=== PATIENT | male | born 1960 | race Caucasian/White ===

== ENCOUNTER 2020-07-01 06:46 | Outpatient (REF) | payer BC, SELFPAY | END 2020-07-01 06:47 | disposition home or self-care (01) | LOC: HO.LAB 06:46 | PROVIDERS: Visit Provider Internal Medicine | DX: Z20.828 Contact with and (suspected) exposure to other viral communicable diseases (principal) | CPT/HCPCS: C9803; U0003 ==

== ENCOUNTER 2024-08-02 09:47 | Outpatient (AMB) | payer MEDICARE, BC, SELFPAY ==
--- NOTE | 2024-08-02 09:50 | MHC.OFFVIS ---
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 He has background history of atrial septal defect for which he underwent percutaneous closure in 2008. He said at that time he has right-sided chambers were dilated and he was short of breath. He did well after that till 4 years ago when he came for colonoscopy to [facility] and was noticed to be in AFib. He said he was sent to the emergency department and eventually was started on apixaban. He said AFib was paroxysmal and most of the time he has followed up with Cardiology at [facility] Cardiology he is not in atrial fibrillation. He was seeing Dr. Agarwal previously but since he left the practice he has seen another stone polisher machine and for the last 2 years he has not followed up with anyone. He is an active smoker currently. He also has diabetes. He had echocardiography done in [facility] and EF was 40-45%. No regional wall motion abnormalities reported. He is active at home but does not exercise regularly. No bleeding concerns. FORMERLY [facility], [facility] Social History (Updated 08/02/24 @ 10:03 by Radha Cornejo [facility]) Alcohol intake: current Alcohol intake frequency: holidays/special occasions only Patient Tobacco Use Status: Former Tobacco user Tobacco use type: Cigarette Review of Systems Const Denies chills, Denies fatigue, Denies fever(s), Denies frequent falls, Denies weakness, Denies weight gain and Denies weight loss ENT Denies dizziness Card Denies chest pain, Denies leg edema, Denies lightheadedness, Denies palpitations, Denies dyspnea and Denies dyspnea on exertion Resp Denies cough, Denies dyspnea and Denies dyspnea on exertion GI Denies hematochezia Musc Denies abnormal gait, Denies muscle weakness, Denies numbness, Denies radiating pain into limb and Denies tingling Neuro Denies abnormal gait, Denies dizziness, Denies frequent falls, Denies numbness, Denies tingling and Denies weakness Endo Denies fatigue and Denies palpitations Physical Exam Vital Signs: Last Vital Signs Pulse 68 08/02/24 09:51 BP 118/66 08/02/24 09:51 BMI result Body Mass Index 23.5 GENERAL APPEARANCE: in no acute distress, pleasant. NECK: no carotid bruit, no jugular venous distention. SKIN: no suspicious lesions, warm and dry. HEART: no murmurs, regular rate and rhythm. LUNGS: clear to auscultation bilaterally. ABDOMEN: soft, nontender. EXTREMITIES: no edema. PERIPHERAL PULSES: equal. NEUROLOGIC: No gross deficits, AAO X 3 Office Procedures EKG Details: Sinus rhythm 68 beats per minute, leftward axis, QTC 431 milliseconds [id number], Complete Assessment & Plan Assessment & Plan (1) Status post device closure of ASD: Code(s): Z87.74 - Personal history of (corrected) congenital malformations of heart and circulatory system Category: Medical (2) Cardiomyopathy: Code(s): I42.9 - Cardiomyopathy, unspecified Category: Medical (3) PAF (paroxysmal atrial fibrillation): Code(s): I48.0 - Paroxysmal atrial fibrillation Category: Medical Plan Pleasant 63 year gentleman who is here for 1st office visit. He has background history of paroxysmal atrial fibrillation and has been on beta-baljeet and Eliquis he is in sinus rhythm currently. He also has background of atrial septal defect closure. He has mild cardiomyopathy on his echocardiogram. Clinically does not have any symptoms/signs of heart failure. He also denying any chest discomfort but does not exercise regularly. At home he is active but he does not do formal exercise. Given mildly reduced ejection fraction on echocardiography and significant risk factors for coronary artery disease I have referred him for stress echocardiogram. We will also do a Holter monitor to see if he is developing paroxysmal atrial fibrillation because that could be another cause for cardiomyopathy in his case. He will see us back in few months. Thank you for allowing me to participate in the care of your patient. Please feel free to contact me if you have any questions. Orders: Orders CA echo stress exercise w con Today I42.9 - Cardiomyopathy, unspecified ECG 7 day holter monitor Today I48.0 - Paroxysmal atrial fibrillation CA stress test Today I42.9 - Cardiomyopathy, unspecified Coding Level of Care Code New Pt Level 4 (77453) Diagnoses Status post device closure of ASD Z87.74 Cardiomyopathy I42.9 PAF (paroxysmal atrial fibrillation) I48.0 CPT Codes EKG - CPT: 39575-[id number], Complete ([id number])
[2024-08-02 09:51] VITALS: BP 118/66; PULSE 68; BMI 23.5
== END 2024-08-02 11:12 | disposition home or self-care (01) ==
PROVIDERS: PCP Internal Medicine; Visit Provider Internal Medicine Cardiovascular Disease
DX: Z87.74 Personal history of (corrected) congenital malformations of heart and circulatory system (principal); I42.9 Cardiomyopathy, unspecified; I48.0 Paroxysmal atrial fibrillation
CPT/HCPCS: 93010; 99204

== ENCOUNTER → 2024-08-02 09:47 | Outpatient (BNVA) | payer MEDICARE, BC, SELFPAY | PROVIDERS: PCP Internal Medicine; Visit Provider Internal Medicine Cardiovascular Disease | DX: I42.9 Cardiomyopathy, unspecified (principal); I48.0 Paroxysmal atrial fibrillation; Z87.74 Personal history of (corrected) congenital malformations of heart and circulatory system | CPT/HCPCS: 93005; 99202 ==

== ENCOUNTER 2024-08-13 17:44 | Emergency (ER) | payer MEDICARE, BC, SELFPAY ==
--- NOTE | ~2024-08-13 | CT_ITS ---
CLINICAL HISTORY: fall CT head without contrast Comparison: None Findings: No evidence of acute territorial infarct. There is patchy low density in the periventricular and subcortical white matter. Diffuse volume loss is noted. No hydrocephalus. No hemorrhage, mass effect, mass lesion or midline shift. No abnormal extra-axial fluid. No calvarial fracture. Paranasal sinuses and mastoid air cells are clear. Impression: No evidence of acute process. Ischemic microangiopathy and diffuse volume loss. This document has been electronically signed by: Martell Carrasco MD on 08/13/2024 20:48:09
--- NOTE | ~2024-08-13 | CT_ITS ---
CLINICAL HISTORY: fall CT cervical spine without contrast Comparison: None Findings: Vertebral alignment is within normal limits. Mild multilevel degenerative changes within the cervical spine. No acute fractures or dislocations. No acute findings on limited view of the intracranial contents. Soft tissues of the neck are normal. Lung apices are clear. IMPRESSION: No acute findings. This document has been electronically signed by: Martell Carrasco MD on 08/13/2024 20:47:06
[2024-08-13 17:51] VITALS: BP 136/75; PULSE 73; O2SAT 97
--- NOTE | 2024-08-13 17:54 | ED.FALL ---
HPI - Fall General Chief Complaint: Fall Stated Complaint: unwit fall, + headstrike w/ hemorrhaging Time Seen by Provider: 08/13/24 17:53 Source: patient and EMS Mode of arrival: EMS Limitations: no limitations History of Present Illness ED Provider: HPI Narrative: Patient's history of ASD status post percutaneous closure in 2008, history of paroxysmal AFib on Eliquis, cardiomyopathy apparently had about 10 beers today was in the driveway coming inside lost balance and fell his forehead to the ground came with abrasion of the left forehead no loss of consciousness no seizure patient was on the driveway for about an hour when neighbor called EMS denies any dizziness palpitation or syncope episode no chest pain Related Data Home Medications ?Medication ?Instructions ?Recorded ?Confirmed apixaban 5 mg tablet (Eliquis) 5 mg PO BID 08/02/24 08/02/24 insulin detemir U-100 100 unit/mL unit subcut 08/02/24 08/02/24 (3 mL) subcutaneous pen latanoprost 0.005 % eye drops 1 drp ophthalmic-Right BEDTIME 08/02/24 08/02/24 lisinopril 5 mg tablet mg PO DAILY 08/02/24 08/02/24 metoprolol tartrate 25 mg tablet 25 mg PO BID 08/02/24 08/02/24 Allergies Allergy/AdvReac Type Severity Reaction Status Date / Time No Known Allergies Allergy Unverified 08/13/24 18:07 [No Known Allergies*] Review of Systems Review of Systems: Yes all other systems are reviewed and are negative [facility] Social History Social History Alcohol intake: current Alcohol intake frequency: holidays/special occasions only Patient Tobacco Use Status: Former Tobacco user Tobacco use type: Cigarette Smoked in Last 30 Days: Yes Use of substances other than those prescribed or required for medical reasons: No Advance Directives: No Advance Directives Information Provided: No Physical Exam Vital Signs: Vital Signs: Last Vital Signs Temp 96.5 F L 08/13/24 23:44 Pulse 104 H 08/13/24 23:44 Resp 18 08/13/24 23:44 BP 124/58 L 08/13/24 23:44 Pulse Ox 94 08/13/24 23:44 O2 Del Method Room Air 08/13/24 23:44 BMI result Body Mass Index 25.1 Appearance: Alert. Oriented X3. No acute distress. Eyes: PERRLA, No Nystagmus ENT: Pharynx normal. Oral Mucosa moist superficial abrasion forehead Neck: Normal inspection. Neck supple. No midline tenderness CVS: Normal heart rate and rhythm. Pulses normal. Respiratory: No respiratory distress. Equal air entry bilateral, no wheezing/rales/rhonchi Abdomen: Soft and nontender. Bowel sounds are present, no mass palpable, no CVA tenderness Skin: Skin warm and dry. Normal skin color. Normal skin turgor. Extremities: No lower extremity edema. No calf tenderness Neuro: Oriented X 3. No motor deficit. No sensory deficit.No cerebellar signs , cranial nerves II-XII intact Medications Administered Discontinued Medications Generic Name Dose Route Start Last Admin Trade Name Freq PRN Reason Stop Dose Admin Sodium Chloride 1,000 mls @ 999 mls/hr 08/13/24 19:59 08/13/24 21:21 Ns IV 08/13/24 20:59 Infused .Q1H1M ONE Infusion Sodium Chloride 1,000 mls @ 999 mls/hr 08/13/24 21:53 08/13/24 23:27 Ns IV 08/13/24 22:53 Infused .Q1H1M ONE Infusion Insulin Glargine 30 unit 08/13/24 21:53 08/13/24 22:11 Insulin Glargine,Hum.Rec.Anlog 100 Unit/Ml 10 Ml Vial SUBCUT 08/13/24 21:54 30 unit ONCE ONE Administration Insulin Human Lispro 14 unit 08/13/24 19:59 08/13/24 20:14 Insulin Lispro 100 Unit/Ml 3 Ml Vial SUBCUT 08/13/24 20:00 14 unit ONCE ONE Administration Insulin Human Lispro 12 unit 08/13/24 21:53 08/13/24 22:12 Insulin Lispro 100 Unit/Ml 3 Ml Vial SUBCUT 08/13/24 21:54 12 unit ONCE ONE Administration Medical Decision Making Medical Decision Making [facility] Narrative: Patient alcoholic with history of diabetes with hyperglycemia came after mechanical fall CT scan of the head and C-spine negative blood sugar was elevated which was corrected using insulin and IV fluids patient has missed his insulin last night which was given in the ER patient ambulatory in his steady gait during stay in the ER Differential Diagnosis Differential Diagnoses: The differential diagnosis associated with the presentation includes Intracranial bleed/subarachnoid bleed/hyperglycemia/AFib Lab Data MDM Lab Attestation statement: I reviewed the patient's lab results. 08/13/24 19:29 08/13/24 19:29 Labs: Lab Results 08/13/24 08/13/24 08/13/24 Range/Units 19:29 21:05 23:05 WBC 8.6 (4.8-10.8) X10*3/uL RBC 5.10 (4.60-5.80) X10*6/uL Hgb 16.3 (14.0-18.0) g/dl Hct 46.8 (42.0-52.0) % MCV 91.8 (80.0-98.0) fL MCH 32.0 (27.0-33.0) pg MCHC 34.8 (31.0-36.0) g/dl RDW 13.2 (11.0-16.0) % Plt Count 278 (160-400) X10*3/uL MPV 9.1 L (9.4-12.4) fL Immature Gran % (Auto) 0.5 H (0.0-0.4) % Neut % (Auto) 75.7 H (45-73) % Lymph % (Auto) 17.3 L (20-40) % [place] % (Auto) 5.1 (2-11) % Eos % (Auto) 0.6 (0-4) % Baso % (Auto) 0.8 (0-2) % Lymph # (Auto) 1.5 (1.2-4.9) X10*3/uL [place] # (Auto) 0.4 (0.1-1.2) X10*3/uL Eos # (Auto) 0.1 (0.0-0.4) X10*3/uL Baso # (Auto) 0.1 (0.0-0.2) X10*3/uL Abs Immat Gran (auto) 0.04 H (0.00-0.03) X10*3/uL Absolute Neuts (auto) 6.5 (2.0-8.3) x10*3/uL Absolute Nucleated RBC 0.000 (0.0-0.012) X10*3/uL Nucleated RBC % (auto) 0.0 (0.0-0.2) /100WBC Sodium 124 L (135-145) mmol/L Potassium 4.9 (3.3-5.1) mmol/L Chloride 91 L (96-108) mmol/L Carbon Dioxide 15 L (22-29) mmol/L Anion Gap 23 H (12-20) BUN 11 (9-16) mg/dL Creatinine 0.97 (0.5-1.4) mg/dL Estim Creat Clear Calc 80.8 Estimated GFR > 60 POC Glucose 401 H* 225 H (60-115) mg/dL Random Glucose 515 H* (60-115) mg/dL Calcium 8.1 L (8.4-10.2) mg/dL Magnesium 2.4 (1.6-2.6) mg/dL Total Bilirubin 0.6 (0.0-1.0) mg/dL AST 37 (5-37) U/L ALT 33 (0-40) U/L Alkaline Phosphatase 106 (39-117) U/L Total Protein 7.7 (6.5-8.0) g/dL Albumin 4.3 (3.5-5.0) g/dL Ethyl Alcohol 332 H* mg/dL Independent Interpretation I performed an independent interpretation of an: EKG Interpretation: Normal sinus rhythm heart rate 97 beats per minute normal interval left axis no acute ST-T changes no acute ischemia Radiology Impression Discussion of test interpretation with radiology: I have reviewed the radiologist's reading. Radiologist Impression: Head CT and cervical CT negative for acute Discharge Plan Discharge Clinical Impression: Fall, Alcohol abuse, Diabetes mellitus with hyperglycemia Patient Disposition: Home, Self-Care Instructions: Abuse of Alcohol (ED), Fall Prevention (ED), Diabetic Hyperglycemia (ED) Additional Instructions: Local care as advised Do not drink alcohol Take your insulin on time Prescriptions: No Action Eliquis 5 mg tablet 5 mg PO BID lisinopril 5 mg tablet PO DAILY Levemir FlexPen 100 unit/mL (3 mL) insulin pen subcut metoprolol tartrate 25 mg tablet 25 mg PO BID latanoprost 0.005 % drops 1 drp ophthalmic-Right BEDTIME Interventions: ED Discharge Assessment Last Done: 08/13/24 23:44 Discharge Date/Time: 08/13/24 23:45 Print Language: Maori
[2024-08-13 18:06] VITALS: BP 108/80; PULSE 88; RESP 18; TEMP 36.1; O2SAT 97; BMI 25.1
--- NOTE | 2024-08-13 18:09 | ECG_ITS ---
Test Reason : fall, etoh Blood Pressure : */* mmHG Vent. Rate : 97 BPM Atrial Rate : 97 BPM P-R Int : 244 ms QRS Dur : 102 ms QT Int : 382 ms P-R-T Axes : 65 -73 60 degrees QTcB Int : 485 ms Poor data quality Sinus rhythm with 1st degree A-V block Left axis deviation Cannot rule out Inferior infarct , age undetermined Abnormal ECG No previous ECGs available Repeat EKG Referred By: Nate Staley Electronically Signed By: SANGEETHA CLIFTON MD
--- NOTE | 2024-08-13 18:31 | MHC.EDTECH ---
This pct went into patients room to conduct an EKG but the patient is very intoxicated and refused his EKG stating he had one two weeks ago and doesn't need another one. RN and AWARE
--- NOTE | 2024-08-13 18:39 | PC.NURSE ---
Patient ripped off his collar, refusing labs and EKG. Refusing exchange administrator into hospital clothes. Provider alerted
--- NOTE | 2024-08-13 19:02 | PC.NURSE ---
Pt yelling and getting out of bed. Pt deescalated and sat back into bed, agreed to go to CT.
[2024-08-13 19:35] LABS: MANUAL DIFF FLAG NO
--- NOTE | 2024-08-13 19:35 | PC.NURSE ---
assumed care of patient. patient took c collar off and is continues to get out of stretcher, patient redirected by this RN to stay in stretcher while waiting for CT results.
[2024-08-13 19:37] LABS: Basophils Absolute Auto 0.1 X10*3/uL (0.0-0.2); Basophils Percent Auto 0.8 % (0-2); Eosinophils Absolute Auto 0.1 X10*3/uL (0.0-0.4); Eosinophils Percent Auto 0.6 % (0-4); Hematocrit 46.8 % (42.0-52.0); Hemoglobin 16.3 g/dl (14.0-18.0); Imm Gran Abs Auto 0.04 X10*3/uL (0.00-0.03); Imm Gran Pct Auto 0.5 % (0.0-0.4); Lymphocytes Absolute Auto 1.5 X10*3/uL (1.2-4.9); Lymphocytes Percent Auto 17.3 % (20-40); Mean Corpuscular HGB Conc 34.8 g/dl (31.0-36.0); Mean Corpuscular Volume 91.8 fL (80.0-98.0); Mean Platelet Volume 9.1 fL (9.4-12.4); Monocytes Absolute Auto 0.4 X10*3/uL (0.1-1.2); Monocytes Percent Auto 5.1 % (2-11); Neutrophils Absolute Auto 6.5 x10*3/uL (2.0-8.3); Neutrophils Percent Auto 75.7 % (45-73); Platelet Count 278 X10*3/uL (160-400); Red Cell Distribution Width 13.2 % (11.0-16.0); White Blood Count 8.6 X10*3/uL (4.8-10.8)
[2024-08-13 19:48] LABS: Ethanol 332 mg/dL
[2024-08-13 19:50] VITALS: BP 105/45; PULSE 98; RESP 20; O2SAT 95
[2024-08-13 19:55] LABS: Alanine Aminotransferase 33 U/L (0-40); Albumin Level 4.3 g/dL (3.5-5.0); Alkaline Phosphatase 106 U/L (39-117); Anion Gap 23 (12-20); Aspartate Amino Transferase 37 U/L (5-37); Bilirubin Total 0.6 mg/dL (0.0-1.0); Blood Urea Nitrogen 11 mg/dL (9-16); Calcium 8.1 mg/dL (8.4-10.2); Carbon Dioxide 15 mmol/L (22-29); Chloride 91 mmol/L (96-108); Creatinine Clr Calc Pharmacy 80.8; Estimated Glomerular Filt Rate > 60; Glucose Random 515 mg/dL (60-115); Magnesium 2.4 mg/dL (1.6-2.6); Potassium 4.9 mmol/L (3.3-5.1); Sodium 124 mmol/L (135-145); Total Protein 7.7 g/dL (6.5-8.0)
[2024-08-13] MEDS: 0.9 % Sodium Chloride 1,000 ML 999 ML IV ×2 (20:14→22:09)
[2024-08-13] MEDS: Insulin Lispro 100 UNIT/ML 3 ML VIAL 14 UNIT SUBCUT (20:14)
[2024-08-13 21:09] LABS: Glucose, Whole Blood 401 mg/dL (60-115)
[2024-08-13] MEDS: Insulin Glargine,Hum.rec.anlog 100 UNIT/ML 10 ML VIAL 30 UNIT SUBCUT (22:11)
[2024-08-13] MEDS: Insulin Lispro 100 UNIT/ML 3 ML VIAL 12 UNIT SUBCUT (22:12)
[2024-08-13 23:14] LABS: Glucose, Whole Blood 225 mg/dL (60-115)
[2024-08-13 23:42] VITALS: BP 124/58; PULSE 104; RESP 18; TEMP 35.8; O2SAT 94
--- NOTE | 2024-08-13 23:43 | PC.NURSE ---
per MD patient okay to discharge with uber or taxi at this time, patient up to nursing station and walking in [place] no apparent distress noted
[2024-08-13 23:44] VITALS: BP 124/58; PULSE 104; RESP 18; TEMP 35.8; O2SAT 94
== END 2024-08-13 23:45 | disposition home or self-care (01) ==
PROVIDERS: Emergency Provider Internal Medicine; PCP Internal Medicine
DX: S09.90XA Unspecified injury of head, initial encounter (principal); S00.81XA Abrasion of other part of head, initial encounter; R51.9 Headache, unspecified; R94.31 Abnormal electrocardiogram [ECG] [EKG]; E11.9 Type 2 diabetes mellitus without complications; I44.0 Atrioventricular block, first degree; M54.2 Cervicalgia; X58.XXXA Exposure to other specified factors, initial encounter; Y93.9 Activity, unspecified; Y92.89 Other specified places as the place of occurrence of the external cause; Y99.9 Unspecified external cause status; Z79.899 Other long term (current) drug therapy; Z87.891 Personal history of nicotine dependence; Z79.4 Long term (current) use of insulin; Z51.81 Encounter for therapeutic drug level monitoring
CPT/HCPCS: 36415; 70450; 72125; 80053; 80307; 82947; 83735; 85025; 93005; 96360; 96361; 99284; 99285

== ENCOUNTER → 2024-08-13 17:54 | Outpatient (BNV) | payer MEDICARE, BC, SELFPAY | PROVIDERS: Emergency Provider Internal Medicine; PCP Internal Medicine; Visit Provider Radiology Vascular & Interventional Radiology | DX: S09.90XA Unspecified injury of head, initial encounter (principal) | CPT/HCPCS: 70450; 72125 ==

== ENCOUNTER → 2024-08-13 18:09 | Outpatient (BNV) | payer MEDICARE, BC, SELFPAY | PROVIDERS: Emergency Provider Internal Medicine; PCP Internal Medicine; Visit Provider Internal Medicine Cardiovascular Disease | DX: R94.31 Abnormal electrocardiogram [ECG] [EKG] (principal) | CPT/HCPCS: 93010 ==

== ENCOUNTER → 2024-08-23 10:43 | Outpatient (REF) | payer MEDICARE, BC, SELFPAY ==
--- NOTE | 2024-08-23 10:49 | CA_ITS ---
Acquisition Time: 2024-08-23 11:08:22 Total Exercise Time: 00:07:51 Test Indications: CARDIOMYOPATHY AFIB Medications: ELIQUIS Insulin LISINOPRIL METOPROLOL Protocol: SHIRLEY Max HR: 130 BPM 83% of Pred: 155 BPM Max BP: 148/80 mmHG Max Work Load: 9.8 METS Exercise Stress Test with exercise 7 mins 51 secs of Shirley Protocol, achieving 83% MPHR, with reports of moderate SOB, no chest discomfort, with frequent isolated PACs and PVCs, ventriculat couplets and one triplet, with normotensive response to exercise. Without EKG changes meeting criteria for ischemia. In recovery, breathing returned to baseline. Echo images obtained by tech at rest and post peak exercise. Definity contrast utilized. Test reviewed with Dr. Ferrara. Referred By: Khanh Deleon Electronically Signed By: Clarence Carrion
--- OUTSIDE RECORDS SUMMARY | 2024-08-23 11:24 | XMS_ITS | Clinical Summary ---
Author Organization [facility] Address [address] [place] [address] Phone Care Team Providers Care House Visitor Name Role Phone Yas Roque MD Primary Care Provider [phone] Encounters Date Type Department Care Team Description 07/10/2024 2:16 PM EST - 07/10/2024 11:59 PM EST Hospital Encounter [facility] CT Scan [address] [place] [address] Encounter for screening for malignant neoplasm of respiratory organs; Nicotine dependence, cigarettes, uncomplicated Discharge Disposition: Home or Self Care from Last 3 Months Surgical History Surgery Date Site/Laterality Comments OTHER SURGICAL HISTORY PROCEDURE: IA INDOCYANINE-GREEN ANGRPH W/MULTIFRAME I&R UNI/BI Medical History Medical History Date Comments Family history of diabetes mellitus (DM) DX:Family history of diabetes mellitus (DM) CAD (coronary artery disease) DX :CAD (coronary artery disease) COPD (chronic obstructive pu lmonary disease) ([facility]) DX:COPD (chronic obstructive pulmonary disease) ([facility]) Diabetes ([facility]) DX:Diabetes ( [facility]); COMMENT: IDDM 12 yrs Tobacco use disorder DX:Tobacco use disorder; COMMENT: 1/2 pack a day Hyperlipidemia DX:Hyperlipidemi a Open-angle glaucoma DX:Open-angl e glaucoma Paroxysmal A-fib ([facility]) DX:Pa roxysmal A-fib ([facility]) Ventricular septal defect DX:David tricular septal defect Social History Tobacco Use Types Packs/Day Years Used Date Smoking Tobacco: Every Day Cigarettes 1 48.9 Started: 09/24/1975 Smokeless Tobacco: Never Alcohol Use Standard Drinks/Week Comments Not Currently 0 (1 standard drink = 0.6 oz pur e alcohol) Sex and Gender Information Value Date Recorded Sex Assigned at Not on file Gender Identity Not on file Sexual Orientation Not on file Obstetrics History Plan of Treatment Health Maintenance Due Date Last Done Comments DTaP,Tdap,and Td Vaccines (1 - Tdap) 1977 Hepatitis A Vaccines (1 of 2 - Risk 2-dose series) 1977 Pneumococcal Vaccine: 65+ Years (2 of 2 - PCV) 01/21/2017 01/22/2016 Pneumococcal Vaccine: Pediatrics (0 to 5 Years) and At-Risk Patients (6 to 64 Years) (2 of 2 - PCV) 01/21/2017 01/22/2016 Zoster Vaccines (2 of 2) 08/29/2018 07/04/2018 RSV Immunization Patients 60 + Years Old (1 - Risk 60-74 years 1-dose series) 2018 Abdominal Aortic Aneurysm (AAA) Screen 06/26/2022 Cholesterol Screening (Lipid Panel) 06/26/2022 Colorectal Cancer Screening: Colonoscopy 06/26/2022 Depression Screening 06/26/2022 Hepatitis C Screening 06/26/2022 Medicare Annual Wellness Visit 06/26/2022 Social Influencers of Health Screening 06/26/2022 Hypertension/CHF/CAD Annual BMP Blood Test 07/06/2022 Falls Risk Assessment 09/24/2023 COVID-19 Vaccine (2023-2 5 season) 2024 07/01/2021, 11/02/2020, 10/12/2020 Influenza Vaccine (#1) 2024 HIB Vaccines Aged Out No longer eligi ble based on patient's age to complete this topic HPV Vaccines Aged Out No longer eligi ble based on patient's age to complete this topic Hepatitis B Vaccines Aged Out No long er eligible based on patient's age to complete this topic IPV Vaccines Aged Out No longer eligi ble based on patient's age to complete this topic MMR Vaccines Aged Out No longer eligi ble based on patient's age to complete this topic Meningococcal ACWY Vaccine Aged Out N o longer eligible based on patient's age to complete this topic RSV Immunization Patients Under 20 months Aged Out No longer eligible b ased on patient's age to complete this topic Varicella Vaccines Aged Out No longer eligible based on patient's age to complete this topic Procedures Procedure Name Priority Date/Time Associated Diagnosis Comments CT LUNG SCREENING Routine 07/10/2024 2:3 2 PM EST Encounter for screening for malignant neoplasm of respiratory organs Nicotine dependence, cigarettes, uncomplicated from Last 3 Months Results * CT Lung Screening (07/10/2024 2:32 PM EST) Anatomical Region Laterality Modality Chest Computed Tomogra phy 07/12/2024 8:43 AM EST Impressions 07/12/2024 8:49 AM EST Stable exam. ?? Lung-RADS 2. ??Follow up examination is advised in one year. -------- FINAL REPORT -------- Dictated By: Alejandro Corea Dictated Date: 07/12/2024 08:43 ET Assigned Physician: Alejandro Corea Reviewed and Electronically Signed By: Alejandro Corea Signed Date: 07/12/2024 08:49 ET Workstation ID: [id number] Transcribed By: Self Edit Transcribed Date: 07/12/2024 08:43 ET Narrative 07/12/2024 8:49 AM EST PROCEDURE: CT chest lung cancer screening low dose examination. INDICATION: CT lung screening. TECHNIQUE: Chest CT without intravenous contrast was performed. ??Low-dose examination was performed. ??Reformatted images were evaluated. DOSE: CTDIvol: 4.8mGy. ??Total exam DLP: 193.9mGy-cm COMPARISON: CT chest June 2023 FINDINGS: NODULES: Several very small nodules at the lung apices appear stable. LUNGS: Minimal emphysematous changes. OTHER: Limited views of the upper abdomen appear normal. ??Atrial septal defect closure device is again noted. ??Minimal coronary atherosclerotic disease. ??Minimal plaque in the aorta without aneurysm. ??Mild degenerative changes of the thoracic spine. Procedure Note Alejandro Corea MD - 07/12/2024 PROCEDURE: CT chest lung cancer screening low dose examination. INDICATION: CT lung screening. TECHNIQUE: Chest CT without intravenous contrast was performed. Low- doseexamination was performed. Reformatted images were evaluated. DOSE: CTDIvol: 4.8mGy. Total exam DLP: 193.9mGy-cm COMPARISON: CT chest June 2023 FINDINGS: NODULES: Several very small nodules at the lung apices appear stable. LUNGS: Minimal emphysematous changes. OTHER: Limited views of the upper abdomen appear normal. Atrial septaldefect closure device is again noted. Minimal coronary atheroscleroticdisease. Minimal plaque in the aorta without aneurysm. Mild degenerativechanges of the thoracic spine. IMPRESSION: Stable exam. Lung-RADS 2. Follow up examination is advised in one year. -------- FINAL REPORT -------- Dictated By: Alejandro Corea Dictated Date: 07/12/2024 08:43 ET Assigned Physician: Alejandro Corea Reviewed and Electronically Signed By: Alejandro Corea Signed Date: 07/12/2024 08:49 ET Workstation ID: [id number] Transcribed By: Self Edit Transcribed Date: 07/12/2024 08:43 ET Kia Colmenares MD IMG CT PROCEDURES from Last 3 Months Care Teams House Visitor Relationship Specialty Start Date End Date Yas Roque MD [address] [place] [address] PCP - General 12/15/05
== END ==
LOC: HO.CARD 10:43
PROVIDERS: PCP Internal Medicine; Visit Provider Internal Medicine Cardiovascular Disease
DX: I48.0 Paroxysmal atrial fibrillation (principal); I42.9 Cardiomyopathy, unspecified
CPT/HCPCS: 93242; 93350; Q9957

== ENCOUNTER → 2024-08-23 10:49 | Outpatient (BNV) | payer MEDICARE, BC, SELFPAY | PROVIDERS: PCP Internal Medicine | DX: I49.3 Ventricular premature depolarization (principal); I49.1 Atrial premature depolarization | CPT/HCPCS: 93244 ==

== ENCOUNTER 2024-09-18 10:31 | Outpatient (REF) | payer MEDICARE, BC, SELFPAY ==
[2024-09-18 11:29] LABS: Hematocrit 46.4 % (42.0-52.0); Mean Corpuscular HGB Conc 34.5 g/dl (31.0-36.0); Mean Corpuscular Hemoglobin 31.9 pg (27.0-33.0); Mean Corpuscular Volume 92.4 fL (80.0-98.0); Mean Platelet Volume 9.5 fL (9.4-12.4); Platelet Count 293 X10*3/uL (160-400); Red Blood Count 5.02 X10*6/uL (4.60-5.80); Red Cell Distribution Width 13.5 % (11.0-16.0)
[2024-09-18 11:36] LABS: Prothrombin Time 11.5 SEC (10.9-12.4)
[2024-09-18 11:55] LABS: Anion Gap 12 (12-20); Blood Urea Nitrogen 7 mg/dL (9-16); Calcium 9.5 mg/dL (8.4-10.2); Carbon Dioxide 27 mmol/L (22-29); Chloride 106 mmol/L (96-108); Estimated Glomerular Filt Rate > 60; Glucose Random 83 mg/dL (60-115); Potassium 5.1 mmol/L (3.3-5.1); Sodium 140 mmol/L (135-145)
--- OUTSIDE RECORDS SUMMARY | 2024-09-18 12:57 | XMS_ITS | Clinical Summary ---
Author Organization [facility] Address [address] [place] [address] Phone Care Team Providers Care Dermatology Teacher Name Role Phone Yas Roque MD Primary Care Provider [phone] Encounters Date Type Department Care Team Description 07/10/2024 2:16 PM EST - 07/10/2024 11:59 PM EST Hospital Encounter [facility] CT Scan [address] [place] [address] Encounter for screening for malignant neoplasm of respiratory organs; Nicotine dependence, cigarettes, uncomplicated Discharge Disposition: Home or Self Care from Last 3 Months Surgical History Surgery Date Site/Laterality Comments OTHER SURGICAL HISTORY PROCEDURE: [place] INDOCYANINE-GREEN ANGRPH W/MULTIFRAME I&R UNI/BI Medical History Medical History Date Comments Family history of diabetes mellitus (DM) DX:Family history of diabetes mellitus (DM) CAD (coronary artery disease) DX :CAD (coronary artery disease) COPD (chronic obstructive pu lmonary disease) ([facility]) DX:COPD (chronic obstructive pulmonary disease) ([facility]) Diabetes ([facility]) DX:Diabetes ( [facility]); COMMENT: IDDM 12 yrs Tobacco use disorder DX:Tobacco use disorder; COMMENT: 1/2 pack a day Hyperlipidemia DX:Hyperlipidemi a Open-angle glaucoma DX:Open-angl e glaucoma Paroxysmal A-fib ([facility]) DX:Pa roxysmal A-fib ([facility]) Ventricular septal defect DX:David tricular septal defect Social History Tobacco Use Types Packs/Day Years Used Date Smoking Tobacco: Every Day Cigarettes 1 49 Started: 09/24/1975 Smokeless Tobacco: Never Alcohol Use Standard Drinks/Week Comments Not Currently 0 (1 standard drink = 0.6 oz pur e alcohol) Sex and Gender Information Value Date Recorded Sex Assigned at Not on file Legal Sex Male 6:41 AM EST Gender Identity Not on file Sexual Orientation Not on file Obstetrics History Plan of Treatment Health Maintenance Due Date Last Done Comments DTaP,Tdap,and Td Vaccines (1 - Tdap) 1977 Hepatitis A Vaccines (1 of 2 - Risk 2-dose series) 1977 Pneumococcal Vaccine: 50+ Years (2 of 2 - PCV) 01/21/2017 [...] 07/06/2022 Falls Risk Assessment 09/24/2023 COVID-19 Vaccine (4 - 2023-2 5 season) 2024 07/01/2021, 11/02/2020, 10/12/2020 Influenza [...] patient's age to complete this topic Meningococcal B Vacine Aged Out No lo nger eligible based on patient's age to complete [...] Signed Date: 07/12/2024 08:49 ET Workstation ID: [id number] Transcribed By: Self Edit Transcribed Date: 07/12/2024 [...] Signed Date: 07/12/2024 08:49 ET Workstation ID: [id number] Transcribed By: Self Edit Transcribed Date: 07/12/2024 08:43 ET Kia Colmenares MD IM CT PROCEDURES Final Result from Last 3 Months Insurance MEDICARE [facility] Care Teams Dermatology Teacher Relationship Specialty Start Date End Date Yas Roque MD [address] [place] [address] PCP - General 12/15/05
== END 2024-09-18 10:32 | disposition home or self-care (01) ==
LOC: HO.LAB 10:31
PROVIDERS: PCP Internal Medicine; Visit Provider Internal Medicine Cardiovascular Disease
DX: R94.39 Abnormal result of other cardiovascular function study (principal)
CPT/HCPCS: 36415; 80048; 85027; 85610

== ENCOUNTER → 2024-10-01 23:59 | Outpatient (BNV) | payer MEDICARE, BC, SELFPAY | PROVIDERS: PCP Internal Medicine; Visit Provider Internal Medicine Cardiovascular Disease | DX: I25.10 Atherosclerotic heart disease of native coronary artery without angina pectoris (principal); I50.20 Unspecified systolic (congestive) heart failure; R93.1 Abnormal findings on diagnostic imaging of heart and coronary circulation | CPT/HCPCS: 92928; 92978; 93458; 99152 ==

== ENCOUNTER 2024-10-15 13:11 | Outpatient (AMB) | payer MEDICARE, BC, SELFPAY ==
[2024-10-15 13:29] VITALS: BP 110/64; PULSE 61; BMI 23.2
--- NOTE | 2024-10-15 13:29 | A.OFFVIS_ITS ---
Vital Signs 10/15/24 13:29 Height 5 ft 11 in Weight 166 lb 3.657 oz BMI 23.2 BP 110/64 Blood Pressure Location Lt brachial Position Sitting Pulse 61 Pulse Source Pulse Oximeter Intake Visit Reasons: Follow up post cardiac cath Intake Note: F/U Cardiac Cath. Pt has no complaints Dental Sales Representative Required: No Accompanied by: Spouse Allergies No Known Allergies [No Known Allergies*] Allergy (Unverified 08/13/24 18:07) Medication List - Last Reconciled 10/15/24 by Clarence Carrion NP apixaban (Eliquis) 5 mg PO BID clopidogrel (Plavix) 75 mg PO DAILY insulin detemir U-100 units subcut latanoprost 0.005% 1 drp ophthalmic-Right BEDTIME lisinopril mg PO DAILY metoprolol tartrate 25 mg PO BID HPI Comments Details: This is a 64-year-old male patient presenting for a follow-up visit. Patient with a history of atrial septal defect status post closure in 2008, hypertension, diabetes, smoking, and AFib, which was discovered during a colonoscopy. He was subsequently started on Eliquis for anticoagulation. The patient has recently established care with our cardiology office as he had not been following up with [facility]. Regarding his mild cardiomyopathy that was found on an echocardiogram, the patient underwent a stress echocardiogram which was abnormal leading to a subsequent cardiac catheterization performed by Dr. Deleon at [facility]. Today, the patient reports feeling well overall and denies any symptoms including exertional chest pain, shortness of breath, palpitations, dizziness, fatigue, orthopnea, PND, leg edema, presyncope, or syncope. Patient states he has been compliant with his medications. Patient is accompanied by his today. [facility] Surgical History Hx of cardiac cath Social History Alcohol intake: current Alcohol intake frequency: holidays/special occasions only Patient Tobacco Use Status: Former Tobacco user Tobacco use type: Cigarette Review of Systems Const Denies chills, Denies fatigue, Denies fever(s), Denies weight gain and Denies weight loss ENT Denies dizziness Card Denies chest pain, Denies leg edema, Denies lightheadedness, Denies palpitations, Denies dyspnea on exertion, Denies orthopnea and Denies other Resp Denies cough and Denies dyspnea on exertion GI Denies hematochezia and Denies change in stool character Musc Denies abnormal gait, Denies muscle weakness, Denies numbness, Denies radiating pain into limb and Denies tingling Neuro Denies abnormal gait, Denies dizziness, Denies numbness and Denies tingling Endo Denies fatigue and Denies palpitations Physical Exam Vital Signs: Last Vital Signs Pulse 61 10/15/24 13:29 BP 110/64 10/15/24 13:29 BMI result Body Mass Index 23.2 Const General: cooperative, healthy appearing, comfortable and no acute distress Orientation/consciousness: patient oriented x3 HEENT Head: Yes normal to inspection Neck Neck: Yes normal visual inspection, Yes trachea midline and Yes supple Chest Chest palpation & inspection: normal inspection of the chest Resp Effort & Inspection: normal respiratory effort Auscultation: clear to auscultation bilaterally, no crackles, no rales, no rhonchi and no wheezes Cardio Jugular venous distension: no JVD Palpation: normal PMI Rate: regular rate Rhythm: regular rhythm Heart sounds: S1 normal heart sound present, S2 normal heart sound present, no click, no gallops, no murmurs and no rubs Peripheral pulses: Peripheral pulses 2+ throughout GI Inspection: Yes normal to inspection Palpation (GI): Soft to palpation Auscultation: normal bowel sounds Skin General skin exam: no rashes or lesions noted Neuro General: patient oriented x3 Extrem General: Yes normal to inspection, No no pedal edema and No calf tenderness Psych Appearance: grossly normal Mental Status: mental status grossly normal Speech and movement: Normal speech and movement present Assessment & Plan Assessment & Plan (1) S/P cardiac cath: Code(s): Z98.890 - Other specified postprocedural states Category: Surgical Plan: 04/09/2024- echo study from [facility] showed a reduced ejection fraction between 40-45%, mild global hypokinesis of the left ventricle. 08/23/2024-Holter study showed normal sinus rhythm with frequent PVCs with different morphologies, NSVT lasting 14 beats max, and occasional PACs. 08/23/2024-patient underwent a stress echocardiogram that showed abnormalities in the distal anterior and distal septal wall motion. 10/01/2024-patient underwent cardiac catheterization that showed mild disease in the proximal RCA, severe proximal to mid LAD stenosis at 80% involving diagonal bifurcation. Patient underwent successful PCI to the LAD. Right wrist catheterization site is well healed. Continue Eliquis therapy for AFib. Since patient is on the Eliquis, no need for aspirin therapy. Continue uninterrupted Plavix therapy for at least 12 months. Continue metoprolol, lisinopril, and high-dose statin. No recent LDL. We will get a lipid panel. Ideally, LDL goal less than 70. (2) CAD (coronary artery disease): Code(s): I25.10 - Atherosclerotic heart disease of [place] coronary artery without angina pectoris Category: Medical Plan: As above. Insulin-dependent diabetic. States his blood sugars have been well-controlled. Ideally, A1c goal less than 7%. (3) Cardiomyopathy: Code(s): I42.9 - Cardiomyopathy, unspecified Category: Medical Plan: As above. (4) PAF (paroxysmal atrial fibrillation): Code(s): I48.0 - Paroxysmal atrial fibrillation Category: Medical Plan: As above. (5) Status post device closure of ASD: Code(s): Z87.74 - Personal history of (corrected) congenital malformations of heart and circulatory system Category: Surgical Plan: Echo at [facility] showed the evidence of closure. Patient refused cardiac rehab referral. Advised patient to start a heart healthy diet, regular exercise of at least 20-30 minutes of moderate walking 3 to 4 times a week, smoking cessation, avoidance of alcohol, medication complian ce, and aggressive management of risk factors. Patient will follow up with us in 4 months. In the interim, patient will call us with any concerns or change in symptoms. This note was generated using voice recognition software. While every effort has been made to ensure accuracy and proper horticultural agent, there may be occasional errors that could affect the content or meaning of the described symptoms. Orders: Orders Lipid Panel 1 Month I25.10 - Atherosclerotic heart disease of [place] coronary artery without angina pectoris Medications: New atorvastatin 80 mg PO DAILY 90 tabs 1RF Coding Level of Care Code Est Pt Level 4 (87112) Complex EM visit Add On G2211 Diagnoses S/P cardiac cath Z98.890 CAD (coronary artery disease) I25.10 Cardiomyopathy I42.9 PAF (paroxysmal atrial fibrillation) I48.0 Status post device closure of ASD Z87.74 Time Spent (min) 31 Comment Time spent in reviewing the chart, test results, assessment, counseling and documentation.
== END 2024-10-15 14:19 | disposition home or self-care (01) ==
LOC: HO.HCS 13:12
PROVIDERS: PCP Internal Medicine
DX: Z98.890 Other specified postprocedural states (principal); I25.10 Atherosclerotic heart disease of native coronary artery without angina pectoris; I42.9 Cardiomyopathy, unspecified; I48.0 Paroxysmal atrial fibrillation; Z87.74 Personal history of (corrected) congenital malformations of heart and circulatory system
CPT/HCPCS: 99214; G2211

== ENCOUNTER → 2024-10-15 13:11 | Outpatient (BNVA) | payer MEDICARE, BC, SELFPAY | PROVIDERS: PCP Internal Medicine | DX: I10 Essential (primary) hypertension (principal); I48.91 Unspecified atrial fibrillation; I25.10 Atherosclerotic heart disease of native coronary artery without angina pectoris; I48.0 Paroxysmal atrial fibrillation; I42.9 Cardiomyopathy, unspecified; F17.210 Nicotine dependence, cigarettes, uncomplicated; Z87.74 Personal history of (corrected) congenital malformations of heart and circulatory system; Z79.01 Long term (current) use of anticoagulants; Z98.890 Other specified postprocedural states | CPT/HCPCS: 99212 ==

== ENCOUNTER 2025-01-13 11:17 | Outpatient (AMB) | payer MEDICARE, BC, SELFPAY ==
[2025-01-13 11:22] VITALS: BP 110/70; PULSE 74; BMI 23.2
--- NOTE | 2025-01-13 11:22 | A.OFFVIS_ITS ---
Vital Signs 01/13/25 11:22 Height 5 ft 11 in Weight 166 lb 10.711 oz BMI 23.2 BP 110/70 Blood Pressure Location Lt brachial Position Sitting Pulse 74 Pulse Source Pulse Oximeter Intake Visit Reasons: 3m F/U Intake Note: 3 mth f/up Jute Bag Cutting Machine Operator Required: No Accompanied by: Spouse Allergies No Known Allergies (No Known Allergies*) Allergy (Unverified 08/13/24 18:07) Medication List - Last Reconciled 01/13/25 by Khanh Deleon MD apixaban (Eliquis) 5 mg PO BID atorvastatin 80 mg PO DAILY clopidogrel (Plavix) 75 mg PO DAILY insulin detemir U-100 units subcut latanoprost 0.005% 1 drp ophthalmic-Right BEDTIME lisinopril mg PO DAILY metoprolol tartrate 25 mg PO BID HPI Comments Details: 64-year-old gentleman who is here for follow-up. He has background history of atrial septal defect for which he underwent percutaneous closure in 2008. He said at that time he has right-sided chambers were dilated and he was short of breath. He did well after that till 4 years ago when he came for colonoscopy to [facility] and was noticed to be in AFib. He said he was sent to the emergency department and eventually was started on apixaban. He said AFib was paroxysmal and most of the time he has followed up with Cardiology at [facility] he is not in atrial fibrillation. He was seeing Dr. Agarwal previously but since he left the practice he has seen another recordings librarian and for the last 2 years he has not followed up with anyone . He is an active smoker currently. He also has diabetes. He had echocardiography done in [facility] and EF was 40-45%. No regional wall motion abnormalities reported. He is active at home but does not exercise regularly. No bleeding concerns. 01/13/2025: He is here for follow-up. He underwent cardiac catheterization because his stress echocardiogram was abnormal. This showed severe LAD stenosis which was treated with drug-eluting stent. He has been on Plavix and Eliquis since then. Denying any significant symptoms. He continues to smoke half pack per day. He is saying that he is cutting back and trying to quit. [facility] Surgical History Hx of cardiac cath Social History Alcohol intake: current Alcohol intake frequency: holidays/special occasions only Patient Tobacco Use Status: Former Tobacco user Tobacco use type: Cigarette Review of Systems Const Denies chills, Denies fatigue, Denies fever(s), Denies frequent falls, Denies weakness, Denies weight gain and Denies weight loss ENT Denies dizziness Card Denies chest pain, Denies leg edema, Denies lightheadedness, Denies palpitations, Denies dyspnea and Denies dyspnea on exertion Resp Denies cough, Denies dyspnea and Denies dyspnea on exertion GI Denies hematochezia Musc Denies abnormal gait, Denies muscle weakness, Denies numbness, Denies radiating pain into limb and Denies tingling Neuro Denies abnormal gait, Denies dizziness, Denies frequent falls, Denies numbness, Denies tingling and Denies weakness Endo Denies fatigue and Denies palpitations Physical Exam Vital Signs: Last Vital Signs Pulse 74 01/13/25 11:22 BP 110/70 01/13/25 11:22 BMI result Body Mass Index 23.2 GENERAL APPEARANCE: in no acute distress, pleasant. NECK: no carotid bruit, no jugular venous distention. SKIN: no suspicious lesions, warm and dry. HEART: no murmurs, regular rate and rhythm. LUNGS: clear to auscultation bilaterally. ABDOMEN: soft, nontender. EXTREMITIES: no edema. PERIPHERAL PULSES: equal. NEUROLOGIC: No gross deficits, AAO X 3 Assessment & Plan Assessment & Plan (1) Cardiomyopathy: Code(s): I42.9 - Cardiomyopathy, unspecified Category: Medical (2) CAD (coronary artery disease): Code(s): I25.10 - Atherosclerotic heart disease of [place] coronary artery without angina pectoris Category: Medical (3) S/P coronary angioplasty: Code(s): Z98.61 - Coronary angioplasty status Category: Surgical Plan [age] year gentleman who is here for follow-up. He has background history of ASD closure. He had mild cardiomyopathy by echocardiogram performed in [facility]. Subsequently underwent exercise stress echo which was abnormal. Diagnostic angiography showed severe LAD stenosis which was treated with drug- eluting stent. Doing well currently without any significant symptoms. We discussed about smok ing cessation. He will continue Eliquis and Plavix for now. Blood pressure well controlled. We will repeat limited echo to reassess ejection fraction. Follow-up in few months. Thank you for allowing me to participate in the care of your patient. Please feel free to contact me if you have any questions. Orders: Orders CA Echo Limited Today I42.9 - Cardiomyopathy, unspecified Coding Level of Care Code Est Pt Level 4 (77622) Complex EM visit Add On G2211 Diagnoses Cardiomyopathy I42.9 CAD (coronary artery disease) I25.10 S/P coronary angioplasty Z98.61
--- OUTSIDE RECORDS SUMMARY | 2025-01-13 12:56 | XMS_ITS | Clinical Summary ---
Author Organization [facility] Address [address] [place] [address] Phone Care Team Providers Care Global Engineering Manager Name Role Phone Yas Roque MD Primary Care Provider [phone] Allergies No known active allergies Medications latanoprost (XALATAN) 0.005 % ophthalmic solution 1 drop at bedtime. Active insulin lispro (HumaLOG KwikPen Insulin) 100 unit/mL injection pen Inject under the skin 3 (three) times a day before meals. Active metoprolol tartrate (LOPRESSOR) 25 mg tablet Take 1 tablet (25 mg total) by mouth 2 (two) times a day. Active flash glucose sensor (FREESTYLE ANTONIETTA 10 DAY SENSOR MIS) Active apixaban (Eliquis) 5 mg tablet Take 1 tablet (5 mg total) by mouth 2 (two) times a day. Active lisinopriL (PRINIVIL,ZESTRI L) 5 mg tablet Take 1 tablet (5 mg total) by mouth 1 (one) time each day. Active pen needle, diabetic (BD Ultra-Fine Orig Pen Needle) 29 gauge x 1/2 needle Active insulin aspart, niacinamide, (Fiasp FlexTouch U-100 Insulin) 100 unit/mL (3 mL) injection pen Inject under the skin 3 (three) times a day before meals. Active Encounters Date Type Department Care Team Description 11/06/2024 Telephone Gastroenterology - [address] [phone] Osmin Breaux MD 11/01/2024 Telephone Gastroenterology - [address] [address] Osmin Breaux MD information needed from Last 3 Months Surgical History Surgery Date Site/Laterality Comments OTHER SURGICAL HISTORY PROCEDURE: [place] INDOCYANINE-GREEN ANGRPH W/MULTIFRAME I&R UNI/BI Medical History Medical History Date Comments Family history of diabetes mellitus (DM) DX:Family history of diabetes mellitus (DM) CAD (coronary artery disease) DX :CAD (coronary artery disease) COPD (chronic obstructive pu lmonary disease) ([facility], [facility] V28) DX:COPD (chronic o bstructive pulmonary disease) ([facility]) Diabetes ([facility]24, [facility] V28) DX:Diabetes ([facility]); COMMENT: IDDM 12 yrs Tobacco use disorder DX:Tobacco use disorder; COMMENT: 1/2 pack a day Hyperlipidemia DX:Hyperlipidemi a Open-angle glaucoma DX:Open-angl e glaucoma Paroxysmal A-fib ([facility] V2 4, [facility] V28) DX:Paroxysmal A-fib ([facility]) Ventricular septal defect DX:David tricular septal defect Social History Tobacco Use Types Packs/Day Years Used Date Smoking Tobacco: Every Day Cigarettes 1 49.3 Started: 09/24/1975 Smokeless Tobacco: Never Alcohol Use [...] DTaP,Tdap,and Td Vaccines (1 - Tdap) 1977 Pneumococcal Vaccine: 50+ Years (2 of 2 - PCV) 01/21/2017 01/22/2016 Zoster Vaccines (2 of 2) 08/29/2018 07/04/2018 RSV Immunization Adult Patients (1 - Risk 60-74 years 1-dose series) 2018 Abdominal Aortic Aneurysm (AAA) Screen 06/26/2022 Cholesterol Screening (Lipid Panel) 06/26/2022 Colorectal Cancer Screening: Colonoscopy 06/26/2022 Depression Screening 06/26/2022 Hepatitis C Screening 06/26/2022 Medicare Annual Wellness Visit 06/26/2022 Social Influencers of Health Screening 06/26/2022 Hypertension/CHF/CAD Annual BMP Blood Test 07/06/2022 Falls Risk Assessment 09/24/2023 COVID-19 Vaccine (2023-2 5 season) 2024 07/01/2021, 11/02/2020, 10/12/2020 Influenza Vaccine (Season Ended) 2025 HIB Vaccines Aged Out No longer eligi ble based on patient's age to complete this topic HPV Vaccines Aged Out No longer eligi ble based on patient's age to complete this topic Hepatitis A Vaccines Aged Out No long er eligible [...] age to complete this topic Meningococcal B Vaccine Aged Out No l onger eligible based on patient's age to complete this topic RSV Immunization Patients Under 20 months Aged Out No longer eligible b ased on patient's age to complete this topic Varicella Vaccines Aged Out No longer eligible based on patient's age to complete this topic Insurance MEDICARE [facility] Care Teams Global Engineering Manager Relationship Specialty Start Date End Date Yas Roque MD [address] [place] [address] PCP - General 12/15/05
== END 2025-01-13 11:58 | disposition home or self-care (01) ==
LOC: HO.HCS 11:18
PROVIDERS: PCP Internal Medicine; Visit Provider Internal Medicine Cardiovascular Disease
DX: I42.9 Cardiomyopathy, unspecified (principal); I25.10 Atherosclerotic heart disease of native coronary artery without angina pectoris; Z98.61 Coronary angioplasty status
CPT/HCPCS: 99214; G2211

== ENCOUNTER → 2025-01-13 11:17 | Outpatient (BNVA) | payer MEDICARE, BC, SELFPAY | PROVIDERS: PCP Internal Medicine; Visit Provider Internal Medicine Cardiovascular Disease | DX: I42.9 Cardiomyopathy, unspecified (principal); I25.10 Atherosclerotic heart disease of native coronary artery without angina pectoris; Z98.61 Coronary angioplasty status | CPT/HCPCS: 99212 ==

== ENCOUNTER → 2025-04-23 08:47 | Outpatient (REF) | payer MEDICARE, BC, SELFPAY ==
--- NOTE | 2025-04-23 08:49 | CA_ITS ---
Transthoracic Echocardiogram Patient (Last, First, Middle): Rishi Bower, Gender: M Date of : 1960 Age: 64 Procedure Date: 04/23/2025 Procedure Type: Transthoracic Echocardiogram Location: OP Height: 180.34 cm Weight: 75.3 kg BSA: 1.95 m2 Heart Rate: bpm BP: 110 / 70 mmHg Chronometer Tester: ERMA/ANN Referring MD: Khanh Deleon MD Activities Specialist: Khanh Deleon MD Symptoms: I42.9 - Cardiomyopathy, unspecified Study Quality: Adequate ECG Rhythm: Sinus Conclusions: - The left ventricular systolic function is moderately decreased. The visually estimated ejection fraction is between 35-40%. Findings Left Ventricle Normal left ventricular cavity size. There is mildly increased left ventricular wall thickness. The left ventricular systolic function is moderately decreased. The visually estimated ejection fraction is between 35 40%. There is moderate global hypokinesis. Moderate hypertrophy of the basal septum. LV peak GLS -12.7%. Venous The inferior vena cava is normal in size and collapses greater than 50% with inspiration. Prior Study Comparison No prior study available for comparison. Measurements 2D Linear Measurements IVSd: 1.11 0.6-0.9/0.6-1.0 cm LVIDd: 5.01 3.9-5.3/4.2-5.9 cm LVIDs: 4.00 2.0-3.6 cm LVPWd: 1.04 0.7-1.1 cm LA Diam: 4.00 2.7-3.8/3.0-4.0 cm LV Mass: 250.96 67-162/88-224 g LVOT Diam: 2.00 3.0+(-)1.3 cm 2D Systolic Function EF 4C: 45.70 >55% EF 2C: 44.10 >55% EF BiP: 45.60 >55% LVOT LVOT Pk Martin: 0.65 LVOT Mn Martin: 0.40 LVOT VTI: 0.16 LVOT Pk Grad: 2.00 LVOT Mn Grad: 1.00 LVOT Diam: 2.00 LVOT Area: 3.14 Tricuspid Valve RA Press: 3.00 Updated in Other Vendor System with Status of Final Noam Ferrara MD electronically signed on 04/25/2025 3:05:39 PM with status of Final
--- OUTSIDE RECORDS SUMMARY | 2025-04-23 09:22 | XMS_ITS | Clinical Summary ---
Author Organization [facility] Address [address] [place] [phone] Phone Care Team Providers Care Station Captain Name Role Phone Yas Roque MD Primary Care Provider [phone] Allergies No known active allergies Medications latanoprost [...] glucose sensor (FREESTYLE ANTONIETTA 10 DAY SENSOR MISC) Active apixaban (Eliquis) 5 mg tablet Take [...] (three) times a day before meals. Active Surgical History Surgery Date Site/Laterality Comments OTHER SURGICAL HISTORY PROCEDURE: [place] INDOCYANINE-GREEN ANGRPH W/MULTIFRAME I&R UNI/BI Medical History Medical History Date Comments Family history of diabetes mellitus (DM) DX:Family history of diabetes mellitus (DM) CAD (coronary artery disease) DX :CAD (coronary artery disease) [place]ch[place] obstructive pu [place]monary disease[place] [place] [facility] [place] DX:COPD (chronic o bstructive pulmonary disease) ([facility]) [place] [place] [facility] [place] DX:Diabetes ([facility]); COMMENT: IDDM 12 yrs Tobacco use disorder DX:Tobacco use disorder; COMMENT: 1/2 pack a day Hyperlipidemia DX:Hyperlipidemi a Open-angle glaucoma DX:Open-angl e glaucoma Paroxysmal A-[place] [place] [facility] [place] DX:Paroxysmal A-fib ([facility]) Ventricular septal defect DX:David tricular septal defect Social History Tobacco Use Types Packs/Day Years Used Date Smoking Tobacco: Every Day Cigarettes 1 49.6 Started: 09/24/1975 Smokeless Tobacco: Never Alcohol Use Standard Drinks/Week Comments Not Currently 0 (1 standard drink = 0.6 oz pur e alcohol) Sex and Gender Information Value Date Recorded Sex Assigned at Not on file Legal Sex Male 6:41 AM EST Gender Identity Not on file Sexual Orientation Not on file Obstetrics History Plan of Treatment Health Maintenance Due Date Last Done Comments Colorectal Cancer Screening: Colonoscopy 1958 DTaP,Tdap,and Td Vaccines (1 - Tdap) 1977 Pneumococcal Vaccine: 50+ Years (2 of 2 - PCV) 01/21/2017 01/22/2016 Zoster Vaccines (2 of 2) 08/29/2018 07/04/2018 RSV Immunization Adult Patients (1 - Risk 60-74 years 1-dose series) 2018 Abdominal Aortic Aneurysm (AAA) Screen 06/26/2022 Cholesterol Screening (Lipid Panel) 06/26/2022 Hepatitis C Screening 06/26/2022 Medicare Annual Wellness Visit 06/26/2022 Social Influencers of Health Screening 06/26/2022 Hypertension/CHF/CAD Annual BMP Blood Test 07/06/2022 Falls Risk Assessment 09/24/2023 Depression Screening 07/24/2024 COVID-19 Vaccine (4 - 2024-2 6 season) 2025 07/01/2021, 11/02/2020, 10/12/2020 Influenza Vaccine (#1) 2025 HIB Vaccines Aged Out No longer [...] age to complete this topic Insurance MEDICARE [facility] Care Teams Station Captain Relationship Specialty Start Date End Date Yas Roque MD [address] [place] [address] PCP - General 12/15/05
== END ==
LOC: HO.CARD 08:47
PROVIDERS: Visit Provider Internal Medicine Cardiovascular Disease
DX: I42.9 Cardiomyopathy, unspecified (principal)
CPT/HCPCS: 93308

== ENCOUNTER → 2025-04-23 08:49 | Outpatient (BNV) | payer MEDICARE, BC, SELFPAY | PROVIDERS: Visit Provider Internal Medicine | DX: I42.2 Other hypertrophic cardiomyopathy (principal) | CPT/HCPCS: 93308; 93356 ==

== ENCOUNTER 2025-04-30 14:05 | Outpatient (AMB) | payer MEDICARE, BC, SELFPAY ==
--- NOTE | 2025-04-30 14:21 | A.OFFVIS_ITS ---
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 He has background history of atrial septal defect for which he underwent percutaneous closure in 2008. He said at that time he has right-sided chambers were dilated and he was short of breath. He did well after that till 4 years ago when he came for colonoscopy to [facility] and was noticed to be in AFib. He said he was sent to the emergency department and eventually was started on apixaban. He said AFib was paroxysmal and most of the time he has followed up with Cardiology at [facility] Cardiology he is not in atrial fibrillation. He was seeing Dr. Agarwal previously but since he left the practice he has seen another eco industrial development consultant and for the last 2 years he has not followed up with anyone. He is an active smoker currently. He also has diabetes. He had echocardiography done in [facility] and EF was 40-45%. No regional wall motion abnormalities reported. He is active at home but does not exercise regularly. No bleeding concerns. 01/13/2025: He is here for follow-up. He underwent cardiac catheterization because his stress echocardiogram was abnormal. This showed severe LAD stenosis which was treated with drug-eluting stent. He has been on Plavix and Eliquis since then. Denying any significant symptoms. He continues to smoke half pack per day. He is saying that he is cutting back and trying to quit. 04/30/2025: He is here for follow-up. Recent echocardiography has shown worsening EF of 35-40%. On discussion with him he drinks daily almost 6 beers per day as per the . He is saying he has cut back somewhat on smoking. He also has a fatty liver and was waiting to see GI for that. [facility] Surgical History Hx of cardiac cath Social History Alcohol intake: current Alcohol intake frequency: holidays/special occasions only Patient Tobacco Use Status: Former Tobacco user Tobacco use type: Cigarette Review of Systems Const Denies daytime sleepiness, Denies difficulty sleeping, Denies snoring, Denies stops breathing during sleep and Denies weakness Card Denies chest pain, Denies rapid heart rate, Denies irregular heart rhythm, Denies claudication, Denies leg edema, Denies lightheadedness, Denies palpitations, Denies dyspnea, Denies dyspnea on exertion, Denies orthopnea, Denies paroxysmal nocturnal dyspnea and Denies slow heart rate Resp Denies cough, Denies dyspnea, Denies dyspnea on exertion and Denies snoring GI Reports no additional complaints, Denies hematochezia, Denies change in stool character and Denies dyspepsia Musc Denies abnormal gait, Denies muscle weakness and Denies numbness Neuro Denies abnormal gait, Denies numbness and Denies weakness Endo Denies palpitations Physical Exam Vital Signs: Last Vital Signs Pulse 62 04/30/25 14:22 BP 118/62 04/30/25 14:22 BMI result Body Mass Index 22.7 GENERAL APPEARANCE: in no acute distress, pleasant. NECK: no carotid bruit, no jugular venous distention. SKIN: no suspicious lesions, warm and dry. HEART: no murmurs, regular rate and rhythm. LUNGS: clear to auscultation bilaterally. ABDOMEN: soft, nontender. EXTREMITIES: no edema. PERIPHERAL PULSES: equal. NEUROLOGIC: No gross deficits, AAO X 3 Assessment & Plan Assessment & Plan (1) Cardiomyopathy: Code(s): I42.9 - Cardiomyopathy, unspecified Category: Medical (2) CAD (coronary artery disease): Code(s): I25.10 - Atherosclerotic heart disease of [place] coronary artery without angina pectoris Category: Medical (3) S/P coronary angioplasty: Code(s): Z98.61 - Coronary angioplasty status Category: Surgical Plan [age] year gentleman who is here for follow-up. He has background history of ASD closure. He was noticed to have severe LAD stenosis underwent drug-eluting stent to LAD in the past. He is currently on Eliquis and Plavix. He had paroxysmal atrial fibrillation in the past and is on Eliquis for that. His EKGs have shown sinus rhythm. Reviewing his echocardiography is EF is 35-40%. Was previously 40-45% and I think there is mild worsening of the ejection fraction. In any case we di scussed about potential causes for the cardiomyopathy and given the fact that he drinks up to 6 beers almost daily I have advised him to cut back on drinking because this is the likely cause for his cardiomyopathy. He also has fatty liver which goes along with alcohol use and I have advised him that cutting back on alcohol will likely improve with a fatty liver issue 2. He wants to see a licensed funeral director and we will refer him to GI. He has type 1 diabetes and can not take SGLT2 inhibitors. His last potassium was 5.1. I am reluctant to add spironolactone currently. We will reassess him in few months. He will cut back on alcohol intake. Thank you for allowing me to participate in the care of your patient. Please feel free to contact me if you have any questions. Coding Level of Care Code Est Pt Level 5 (86671) Diagnoses Cardiomyopathy I42.9 CAD (coronary artery disease) I25.10 S/P coronary angioplasty Z98.61
[2025-04-30 14:22] VITALS: BP 118/62; PULSE 62; BMI 22.7
== END 2025-04-30 15:12 | disposition home or self-care (01) ==
LOC: HO.HCS 14:06
PROVIDERS: PCP Internal Medicine; Visit Provider Internal Medicine Cardiovascular Disease
DX: I42.9 Cardiomyopathy, unspecified (principal); I25.10 Atherosclerotic heart disease of native coronary artery without angina pectoris; Z98.61 Coronary angioplasty status
CPT/HCPCS: 99215

== ENCOUNTER → 2025-04-30 14:05 | Outpatient (BNVA) | payer MEDICARE, BC, SELFPAY | PROVIDERS: PCP Internal Medicine; Visit Provider Internal Medicine Cardiovascular Disease | DX: I42.9 Cardiomyopathy, unspecified (principal); I25.10 Atherosclerotic heart disease of native coronary artery without angina pectoris; Z98.61 Coronary angioplasty status; Z72.0 Tobacco use; Z79.01 Long term (current) use of anticoagulants; F10.20 Alcohol dependence, uncomplicated; E78.5 Hyperlipidemia, unspecified; I48.0 Paroxysmal atrial fibrillation | CPT/HCPCS: 99212 ==